=== PATIENT | female | born 1950 | race Caucasian/White ===

== ENCOUNTER → 2019-01-16 12:36 | Outpatient (CLI) | payer MEDICARE, OTHER, SELFPAY ==
[2019-01-16 14:16] LABS: Urine Chlamydia NOT DETECTED; Urine N gonorrhoeae NOT DETECTED
== END ==
PROVIDERS: Visit Provider Physician Assistant
DX: Z20.2 Contact with and (suspected) exposure to infections with a predominantly sexual mode of transmission (principal)
CPT/HCPCS: 87491; 87591

== ENCOUNTER → 2019-01-16 12:41 | Outpatient (CLI) | payer MEDICARE, OTHER, SELFPAY ==
[2019-01-16 14:29] LABS: Hep C Virus Ab w/Reflex Quant NEGATIVE s/c (NEGATIVE)
[2019-01-18 21:04] LABS: RPR Screen Nonreactive (Nonreactive)
[2019-01-21 14:37] LABS: HSV 1 IgM Screen Negative (Negative); HSV 2 IgM Screen Negative (Negative)
[2019-01-22 07:55] LABS: Hepatitis B Core Antibody Reactive (Nonreactive)
== END ==
PROVIDERS: Visit Provider Physician Assistant
DX: R21 Rash and other nonspecific skin eruption (principal)
CPT/HCPCS: 36415; 86592; 86695; 86696; 86704; 86803; 87491; 87591

== ENCOUNTER → 2020-05-31 15:00 | Outpatient (CLI) | payer MEDICARE, OTHER, SELFPAY | PROVIDERS: Visit Provider Specialist | DX: N39.0 Urinary tract infection, site not specified (principal); R31.9 Hematuria, unspecified; R39.9 Unspecified symptoms and signs involving the genitourinary system | CPT/HCPCS: 52000; 81002; 87086; 99213 ==

== ENCOUNTER 2024-02-05 09:00 | Outpatient (RCR) | payer MEDICARE, OTHER, SELFPAY ==
--- NOTE | 2023-12-15 16:23 | PT.OIE ---
Current Diagnoses Muscle weakness (generalized) (12/15/23) Pelvic and perineal pain (12/15/23) Fecal smearing (12/15/23) Past Medical History (Last Updated 06/29/20 @ 14:44 by Christina Sidhu MD) Arthritis Back pain Chronic UTI Hematuria Hematuria HTN (hypertension) Lower urinary tract symptoms (LUTS) Lower urinary tract symptoms (LUTS) Lupus Past Surgical History (Last Reviewed 06/29/20 @ 14:43 by Christina Sidhu MD) H/O thymectomy Visit Care Team Role Provider Type Justo Diamond MD Family Provider Non-Staff Primary Care Provider Specialty: Medical Address: [address] [place] [address], [id number] Email: FRANCHESCA Valdes Attending Provider Non-Staff Referring Provider Specialty: Nursing Address: 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 PT-OP-B Current Condition Start: 12/11/23 17:23 Freq: Status: Active Protocol: Document 12/15/23 10:38 LRN (Rec: 12/15/23 12:20 LRN [id number]) Current Condition History of Current Condition Onset Date 2 yrs ago. Current Complaints PF heaviness and pain. History of Current Condition 2 yrs ago felt heaviness in the PF. Was told she had PF issues and saw a PT and got some relief. Has taken a couple of trips and after sitting for long periods of time has heaviness and increased frequecy/urgency and 3 months ago started to have pain (inside vaginal canal and anus); testing for infections was negative. In the morning she doesn't have pain, but it increases as the day goes on. Went to and was told she had a urine spasm and told she could have a BOTOX injection on 12/26/23. Prior Treatments and Tests PT at [facility] in [place], [place] - 2 yrs ago. Gabapentin for 3 months. Future Testing and Treatments Planned BOTOX injection on 12/26/23 Treatment Goals Patient/Caregiver Goals Pt goal: initially for HEP. - eliminate PF pain to be able to exer 5x/wk (TM, sometimes UE strengthening) - decreased urgency to decrease pain in vagina and anus. - decreased frequency of urination to be able to do a [address] [facility] Personal Factors Other Personal Factors That May Effect Small vaginal opening and dry Therapy/Recovery PF tissues, Occasional flare up of Lupus, Rheumatoid arthritis (mostly in hands), tracheostomy 10 yrs ago. PT-OP-C Subjective Start: 12/11/23 17:23 Freq: Status: Active Protocol: Document 12/15/23 10:38 LRN (Rec: 12/15/23 12:20 LRN [id number]) Patient Questionnaires Pelvic Pain and Urgency/Frequency Patient Symptom Scale Pelvic Pain Score 10 PT-OP-I Pelvic Floor Start: 12/11/23 17:23 Freq: Status: Active Protocol: Document 12/15/23 10:38 LRN (Rec: 12/15/23 12:20 LRN [id number]) Pelvic Floor Assessment Urine Urinary Symptoms Urge Sensation,Hesitancy, Falling Out Feeling/Heavy,Pain Other Urinary Symptoms Sitting for long periods of time causes pain. Sometimes strains to urinate Leakage Size Small Leakage Cause Exercise Other Leakage Causes Vigorous activity or exercise. Leaks Per Day 1x/month Voiding Frequency 4 Nocturia 1-2 Pads Used In 24 Hours 1 Urine Pad Type Panty Liner Bowel Bowel Symptoms Constipation,Fecal Leakage, Uncontrolled Flatulence,Pain Bowel Movement Frequency 1/day if mariusz, 1 every 2 days . [place] Stool Chart Comments 1, 4 7 bowel types Pelvic Clock Pelvic Clock 12-3 Tenderness,Tightness Pelvic Clock 3-6 Tenderness,Tightness Pelvic Clock 6-9 Tenderness,Tightness Pelvic Clock 9-12 Tenderness,Tightness Pelvic Clock Other Greatest pain 6-9 of PF clock. Prolapse Cystocele Grade 2 Rectocele Grade 1 Perineal Descent Resting Absent Bearing Present Contraction Ability Voluntary Contraction Weak Voluntary Relaxation Absent Manual Muscle Testing Left 0 Manual Muscle Testing Right 2 Manual Muscle Testing Anterior 0 Manual Muscle Testing Posterior 2 Muscle Endurance (Seconds) 2 Number of Quick Contractions In 10 6 Seconds Comments Pelvic Floor Comments Poor relaxation Quick: Not felt on L side after 2 contractions, felt on R side 6 contractions. PT-OP-J Posture/Palpation/Skin Start: 12/11/23 17:23 Freq: Status: Active Protocol: Document 12/15/23 10:38 LRN (Rec: 12/15/23 12:20 LRN [id number]) Posture Evaluation Position Standing T-Spine Posture Increased Kyphosis L-Spine Posture Increased Lordosis Shoulder Posture (L) Elevated Arm Posture (L) Internally Rotated,(R) Internally Rotated Pelvis Posture Anteriorly Tilted Comments Posture Comments Tight gluteals (butt gripper). PT-OP-K Range of Motion Start: 12/11/23 17:23 Freq: Status: Active Protocol: Document 12/15/23 10:38 LRN (Rec: 12/15/23 12:20 LRN [id number]) Lumbar Spine Range of Motion Lumbar Spine Active Degrees Testing Position Standing Flexion 98 Extension 15 Rotation Left 30 Rotation Right 30 Lateral Flexion Left 15 Lateral Flexion Right 12 ROM Limitations Soft Tissue Tightness Hip Goniometric Range of Motion Hip Right Passive Testing Position Supine Internal Rotation 35 External Rotation 60 Left Passive Testing Position Supine Internal Rotation 30 External Rotation 60 PT-OP-M Strength Start: 12/11/23 17:23 Freq: Status: Active Protocol: Document 12/15/23 10:38 LRN (Rec: 12/15/23 12:20 LRN [id number]) Trunk Strength Trunk Manual Muscle Testing Core Stabilization Normal Hip Strength Hip Manual Muscle Testing Right Internal Rotation 4+ Good+ Comments Generally 5/5 except as indicated above Left Internal Rotation 4+ Good+ Comments Generally 5/5 except as indicated above PT-OP-Q Treatments Start: 12/11/23 17:23 Freq: Status: Active Protocol: Document 12/15/23 10:38 LRN (Rec: 12/15/23 12:20 LRN [id number]) Therapeutic Exercises Supine Exercises Piriformis stretch Supine Exercise Name Ankle over knee > KTC. Side bilateral Reps/Minutes 1x each Iliopsoas stretch Side bilateral Reps/Minutes 1x each Bowel massage Supine Exercise Name Performed briefly on pt w/ instructions on self care Reps/Minutes x1 Sitting Exercises Hip ER/IR stretch Side bilateral Reps/Minutes 1x each Other Exercises Long sit lower back/hip stretch Other Exercise Name Lower trunk rot/Lateral Hip stretch Side bilateral Reps/Minutes 1x each Self-Care/Home Management Treatment Education Patient Education Home Exercise Program Other Education Discussed results of evaluation, attendance compliance, goals, and plan of care (POC). Pt agreeable to attendance compliance, goals and POC. Pt educated in use of Bladder/ Bowel Diary and I/S in tracking for 1 week. Pt educated in bowel massage & bowel program with I/s to discuss with her refering physician consumption of bran or flaxseed, magnesium, and vit C consumption. Activities Self-Care/Home Management Activities Issued & reviewed HEP: Hip stretches: Happy Baby, Front thigh (psoas stretch), Piriformis (ankle over knee> KTC), lower back & hip stretch , sitting buttock ER/IR stretch. PT-OP-T Assessment and Plan Start: 12/11/23 17:23 Freq: Status: Active Protocol: Document 12/15/23 10:38 LRN (Rec: 12/15/23 12:20 LRN [id number]) Physical Therapy Assessment Rehab Potential Rehabilitation Potential Good Evaluation Complexity Number of Personal Factors/Comorbidities 3 or More Number of Body Systems Impaired 4 or More Clinical Presentation at Evaluation Evolving Impairments Impairments Activity Tolerance, Coordination,Pain,Posture,ROM, Soft Tissue Mobility,Strength, Transfers Goals Three Impairment Increased urinary frequency complaints Short Term Goal (STG) Pt educated in fluid managment norms and urinary voiding and times. STG Duration 4 wks-01/09/24 Assisted Goal (LTG) Decrease frequency of urination with pt able to feel comfortable with traveling a 12 hr flight in Apr. LTG Duration 12 wks-03/05/24 Two Impairment PF pain as day progresses and pain with exercise. Impairment PF pain with exer 5x/wk (TM ex and sometimes UE strengthening) Urinary Urgency with pain in vagina and anus. Short Term Goal (STG) Pt educated in Bowel program, Bowel massage, techniques for having BM without straining. STG Duration 4 wks-01/09/24 Assisted Goal (LTG) Improve bladder & bowel management to eliminate straining with BM's & eliminate PF pain with exer 5x/without or with minimal discomfort. LTG Duration 12 wks-03/05/24 One Impairment Pt lacks an independent self care HEP. Short Term Goal (STG) Education in proper methods for transfers, & ADLs with coordination of breathing and core pressure management, and proper vulvar/genital care STG Duration 4 wks-01/09/24 Assisted Goal (LTG) Pt will be independent with a self care HEP of PF stretching and as needed, strengthening exercises, and hip ROM exercises. LTG Duration 12 wks-03/05/24 Assessment Summary Assessment Pt is a 73 yo female who presents with PF tightness, pain (6-9 of PF clock, & discomfort 2-6 and 9-11 of PF clock, dry vaginal tissues, mild cystocele/rectocele, substitute muscles used for PF contractions, poor core pressure management with movement/transfers and body mechanics exacerbating increase in core pressure, and constipation, all contributing to her pelvic pain. It feels like a varicosity may be present at 6 of PF clock that is extremely sensitive and tender, therefore further assessment may be needed. Her external vaginal tissues are dry and she has a small vaginal opening with tenderness of her superficial and deep PF muscles. Assessment of her anal muscles will be performed at her next appt. The pt has been started on a bowel care program to include bowel massage, and self care hip stretches. The pt will benefit from further skilled physical therapy for education in PF relaxation, core pressure management, manual STM, therapeutic ex's, transfer and posture training, to work to achieve the above stated goals. Physical Therapy Plan Frequency and Duration Frequency of Treatment 1x/Week Duration of treatment (weeks) 12 Plan of Care Start Date 12/15/23 Plan of Care End Date 01/09/24 Therapeutic Interventions Therapeutic Interventions Coordination Training,Gait Training,Home Exercise Program ,Manual Therapy,Neuromuscular Re-education,Self-Care/Home Management,Soft Tissue Mobilization,Therapeutic Activities,Therapeutic Exercises Modalities Biofeedback,Electric Stimulation Other Referrals/Consults Referrals/Consults Recommended Assessment for need of estrogen creme to improve PF tissue health. Next Visit Focus/Plan Next Note Type Treatment Note Next Visit Plan POC for Pelvic pain/cytocele & rectocele: Core pressure & transfer training education, Deep breathing & Hip mobility exs, PF stretching/STM, HEP. Assess bladder diary and bowel involvement with recommendations as appropriate . HEP: PF stretching (with ex and wand), awareness training to relax PF, and relaxation techniques, Hip stretch (R ER, L IR/AB) & core strengthening (rotation, TA). Education in proper methods for transfer with coordination of breathing. Manual therapy for PF stretching (PF clock 6 -8).
--- NOTE | 2023-12-15 16:24 | PT.OPPOC ---
Physical, Occupational & Speech Therapy At [facility] Current Diagnoses Muscle weakness (generalized) (12/15/23) Pelvic and perineal pain (12/15/23) Fecal smearing (12/15/23) Visit Care Team Role Provider Type Justo Diamond MD Family Provider Non-Staff Primary Care Provider Specialty: Medical Address: [address] [place] [address], [address] Email: FRANCHESCA Valdes Attending Provider Non-Staff Referring Provider Specialty: Nursing Address: [facility], [address], [place], [address] Email: Plan Of Care PT-OP-T Assessment and Plan Start: 12/11/23 17:23 Freq: Status: Active Protocol: Document 12/15/23 10:38 LRN (Rec: 12/15/23 12:20 LRN [id number]) Physical Therapy Assessment Rehab Potential Rehabilitation Potential Good Evaluation Complexity Number of Personal Factors/Comorbidities 3 or More Number of Body Systems Impaired 4 or More Clinical Presentation at Evaluation Evolving Impairments Impairments Activity Tolerance, Coordination,Pain,Posture,ROM, Soft Tissue Mobility,Strength, Transfers Goals Three Impairment Increased urinary frequency complaints Short Term Goal (STG) Pt educated in fluid managment norms and urinary voiding and times. STG Duration 4 wks-01/09/24 Nursing Home Goal (LTG) Decrease frequency of urination with pt able to feel comfortable with traveling a 12 hr flight in Apr. LTG Duration 12 wks-03/05/24 Two Impairment PF pain as day progresses and pain with exercise. Impairment PF pain with exer 5x/wk (TM ex and sometimes UE strengthening) Urinary Urgency with pain in vagina and anus. Short Term Goal (STG) Pt educated in Bowel program, Bowel massage, techniques for having BM without straining. STG Duration 4 wks-01/09/24 Die Grinder Goal (LTG) Improve bladder & bowel management to eliminate straining with BM's & eliminate PF pain with exer 5x/without or with minimal discomfort. LTG Duration 12 wks-03/05/24 One Impairment Pt lacks an independent self care HEP. Short Term Goal (STG) Education in proper methods for transfers, & ADLs with coordination of breathing and core pressure management, and proper vulvar/genital care STG Duration 4 wks-01/09/24 Nursing Home Goal (LTG) Pt will be independent with a self care HEP of PF stretching and as needed, strengthening exercises, and hip ROM exercises. LTG Duration 12 wks-03/05/24 Assessment Summary Assessment Pt is a 73 yo female who presents with PF tightness, pain (6-9 of PF clock, & discomfort 2-6 and 9-11 of PF clock, dry vaginal tissues, mild cystocele/rectocele, substitute muscles used for PF contractions, poor core pressure management with movement/transfers and body mechanics exacerbating increase in core pressure, and constipation, all contributing to her pelvic pain. It feels like a varicosity may be present at 6 of PF clock that is extremely sensitive and tender, therefore further assessment may be needed. Her external vaginal tissues are dry and she has a small vaginal opening with tenderness of her superficial and deep PF muscles. Assessment of her anal muscles will be performed at her next appt. The pt has been started on a bowel care program to include bowel massage, and self care hip stretches. The pt will benefit from further skilled physical therapy for education in PF relaxation, core pressure management, manual STM, therapeutic ex's, transfer and posture training, to work to achieve the above stated goals. Physical Therapy Plan Frequency and Duration Frequency of Treatment 1x/Week Duration of treatment (weeks) 12 Plan of Care Start Date 12/15/23 Plan of Care End Date 01/09/24 Therapeutic Interventions Therapeutic Interventions Coordination Training,Gait Training,Home Exercise Program ,Manual Therapy,Neuromuscular Re-education,Self-Care/Home Management,Soft Tissue Mobilization,Therapeutic Activities,Therapeutic Exercises Modalities Biofeedback,Electric Stimulation Other Referrals/Consults Referrals/Consults Recommended Assessment for need of estrogen creme to improve PF tissue health. Next Visit Focus/Plan Next Note Type Treatment Note Next Visit Plan POC for Pelvic pain/cytocele & rectocele: Core pressure & transfer training education, Deep breathing & Hip mobility exs, PF stretching/STM, HEP. Assess bladder diary and bowel involvement with recommendations as appropriate . HEP: PF stretching (with ex and wand), awareness training to relax PF, and relaxation techniques, Hip stretch (R ER, L IR/AB) & core strengthening (rotation, TA). Education in proper methods for transfer with coordination of breathing. Manual therapy for PF stretching (PF clock 6 -8). Plan of Care Dates Plan of Care Start Date 12/15/23 Plan of Care End Date 01/09/24 Electronically Signed by: Caroline Motta, PT 12/15/23 [id number] If you are in agreement with this Plan of Care, please return a signed and dated copy. I have reviewed this Plan of Care and certify that the skilled therapy services above are required to meet the patient?s needs. Physician Signature Date Printed Name and Credentials Clinical Instructor Signature Printed Name and Credentials
--- NOTE | 2023-12-22 11:48 | PT.OTN ---
Current Diagnoses Muscle weakness (generalized) (12/22/23) Pelvic and perineal pain (12/22/23) Fecal smearing (12/22/23) Physical Therapy Treatment Note PT-OP-A Visit Information Start: 12/11/23 17:23 Freq: Status: Active Protocol: Document 12/22/23 10:32 LRN (Rec: 12/22/23 11:48 LRN [id number]) Out-Patient Physical Therapy Visit Information Visit Information Visit Type Treatment Note Visit Note t 146# 12/26/23-BOTOX injection in cervix @ 01/04/24-appt with Dr. Quique Peraza , configuration management specialist. 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 PT-OP-B Current Condition Start: 12/11/23 17:23 Freq: Status: Active Protocol: Document 12/15/23 10:38 LRN (Rec: 12/15/23 12:20 LRN [id number]) Current Condition History of Current Condition Onset Date 2 yrs ago. Current Complaints PF heaviness and pain. History of Current Condition 2 yrs ago felt heaviness in the PF. Was told she had PF issues and saw a PT and got some relief. Has taken a couple of trips and after sitting for long periods of time has heaviness and increased frequecy/urgency and 3 months ago started to have pain (inside vaginal canal and anus); testing for infections was negative. In the morning she doesn't have pain, but it increases as the day goes on. Went to and was told she had a urine spasm and told she could have a BOTOX injection on 12/26/23. Prior Treatments and Tests [facility] [place], [place] - 2 yrs ago. Gabapentin for 3 months. Future Testing and Treatments Planned BOTOX injection on 12/26/23 Treatment Goals Patient/Caregiver Goals Pt goal: initially for HEP. - eliminate PF pain to be able to exer 5x/wk (TM, sometimes UE strengthening) - decreased urgency to decrease pain in vagina and anus. - decreased frequency of urination to be able to do a 12 hr flight in Sept Personal Factors Other Personal Factors That May Effect Small vaginal opening and dry Therapy/Recovery PF tissues, Occasional flare up of Lupus, Rheumatoid arthritis (mostly in hands), tracheostomy 10 yrs ago. PT-OP-C Subjective Start: 12/11/23 17:23 Freq: Status: Active Protocol: Document 12/22/23 10:32 LRN (Rec: 12/22/23 11:48 LRN [id number]) OP-PT Subjective Patient Comments Patient Comments States her per colonoscopy of 12/19/23 at [facility], she was told her colon was all twisted and she has a hiatal hernia. Doing ex's 1-2x/day and the ILU massage. States she drinks 8-10 glasses of water a day that is not reflected in her bladder diary . PT-OP-I Pelvic Floor Start: 12/11/23 17:23 Freq: Status: Active Protocol: Document 12/15/23 10:38 LRN (Rec: 12/15/23 12:20 LRN [id number]) Pelvic Floor Assessment Urine Urinary Symptoms Urge Sensation,Hesitancy, Falling Out Feeling/Heavy,Pain Other Urinary Symptoms Sitting for long periods of time causes pain. Sometimes strains to urinate Leakage Size Small Leakage Cause Exercise Other Leakage Causes Vigorous activity or exercise. Leaks Per Day 1x/month Voiding Frequency 4 Nocturia 1-2 Pads Used In 24 Hours 1 Urine Pad Type Panty Liner Bowel Bowel Symptoms Constipation,Fecal Leakage, Uncontrolled Flatulence,Pain Bowel Movement Frequency 1/day if mariusz, 1 every 2 days . [place] Stool Chart Comments 1, 4 7 bowel types Pelvic Clock Pelvic Clock 12-3 Tenderness,Tightness Pelvic Clock 3-6 Tenderness,Tightness Pelvic Clock 6-9 Tenderness,Tightness Pelvic Clock 9-12 Tenderness,Tightness Pelvic Clock Other Greatest pain 6-9 of PF clock. Prolapse Cystocele Grade 2 Rectocele Grade 1 Perineal Descent Resting Absent Bearing Present Contraction Ability Voluntary Contraction Weak Voluntary Relaxation Absent Manual Muscle Testing Left 0 Manual Muscle Testing Right 2 Manual Muscle Testing Anterior 0 Manual Muscle Testing Posterior 2 Muscle Endurance (Seconds) 2 Number of Quick Contractions In 10 6 Seconds Comments Pelvic Floor Comments Poor relaxation Quick: Not felt on L side after 2 contractions, felt on R side 6 contractions. PT-OP-J Posture/Palpation/Skin Start: 12/11/23 17:23 Freq: Status: Active Protocol: Document 12/15/23 10:38 LRN (Rec: 12/15/23 12:20 LRN [id number]) Posture Evaluation Position Standing T-Spine Posture Increased Kyphosis L-Spine Posture Increased Lordosis Shoulder Posture (L) Elevated Arm Posture (L) Internally Rotated,(R) Internally Rotated Pelvis Posture Anteriorly Tilted Comments Posture Comments Tight gluteals (butt gripper). PT-OP-K Range of Motion Start: 12/11/23 17:23 Freq: Status: Active Protocol: Document 12/15/23 10:38 LRN (Rec: 12/15/23 12:20 LRN [id number]) Lumbar Spine Range of Motion Lumbar Spine Active Degrees Testing Position Standing Flexion 98 Extension 15 Rotation Left 30 Rotation Right 30 Lateral Flexion Left 15 Lateral Flexion Right 12 ROM Limitations Soft Tissue Tightness Hip Goniometric Range of Motion Hip Right Passive Testing Position Supine Internal Rotation 35 External Rotation 60 Left Passive Testing Position Supine Internal Rotation 30 External Rotation 60 PT-OP-M Strength Start: 12/11/23 17:23 Freq: Status: Active Protocol: Document 12/15/23 10:38 LRN (Rec: 12/15/23 12:20 LRN [id number]) Trunk Strength Trunk Manual Muscle Testing Core Stabilization Normal Hip Strength Hip Manual Muscle Testing Right Internal Rotation 4+ Good+ Comments Generally 5/5 except as indicated above Left Internal Rotation 4+ Good+ Comments Generally 5/5 except as indicated above PT-OP-Q Treatments Start: 12/11/23 17:23 Freq: Status: Active Protocol: Document 12/22/23 10:32 LRN (Rec: 12/22/23 11:48 LRN [id number]) Therapeutic Exercises Supine Exercises Happy Baby Pose Supine Exercise Name Happy Baby Pose Reps/Minutes 3' Comments Extra time needed for determining a tolerated stretch position Piriformis stretch Supine Exercise Name Ankle over knee > KTC. Side bilateral Reps/Minutes 1x each Iliopsoas stretch Supine Exercise Name Stretch f/b SL bridge for active stretch Side bilateral Reps/Minutes 1x each Comments Extra time for training and addition of active stretch after static stretch Bowel massage Supine Exercise Name Performed briefly on pt w/ instructions on self care Reps/Minutes x1 Sitting Exercises Hip ER/IR stretch Sitting Exercise Name Knee to opp shdr & light push down on knee. Side bilateral Reps/Minutes 1x each Comments Extra time taken to determine max keo stretch position Other Exercises Long sit lower back/hip stretch Other Exercise Name Lower trunk rot/Lateral Hip stretch Side bilateral Reps/Minutes 1x each Comments Extra time for use of handout for review Therapeutic Activity Therapeutic Activity Modification to fluid mgmt Name Modifying fluid mgmt during ADLs and recreational activities. Reps/Minutes 6' Comments I/S pt in trying to add fluid in AM with modification of her gardening times to include water bottle or pitcher for drinking more fluids. Ideas of placing fluid in front of her to see to sip through the day. Problem solved for ways to incorporate non-caffenated fluids into her diet and daily activities. Self-Care/Home Management Treatment Education Patient Education Home Exercise Program Other Education Reviewed Bladder dairy, discussed fluid intake (AM/PM) & educated her in norms of fluid managment, frequency of urination, urinary voiding times, & nighttime voiding frequency. Pt education and lengthy discussion of bowel movement frequency, how to have bowel movements using relaxation and breathwork (without holding breath), and discussed squatty potty use. Discussion in PF muscles and internal organ positioning Activities Self-Care/Home Management Activities Issued with very brief review of Deep breathing (supine & sit) handout. PT-OP-T Assessment and Plan Start: 12/11/23 17:23 Freq: Status: Active Protocol: Document 12/22/23 10:32 LRN (Rec: 12/22/23 11:48 LRN [id number]) Physical Therapy Assessment Goals Three Impairment Increased urinary frequency complaints Short Term Goal (STG) Pt educated in fluid managment norms and urinary voiding and times. STG Duration 4 wks-01/09/24 Penitentiary Goal (LTG) Decrease frequency of urination with pt able to feel comfortable with traveling a 12 hr flight in Apr. LTG Duration 12 wks-03/05/24 Two Impairment PF pain as day progresses and pain with exercise. Impairment PF pain with exer 5x/wk (TM ex and sometimes UE strengthening) Urinary Urgency with pain in vagina and anus. Short Term Goal (STG) Pt educated in Bowel program, Bowel massage, techniques for having BM without straining. STG Duration 4 wks-01/09/24 Penitentiary Goal (LTG) Improve bladder & bowel management to eliminate straining with BM's & eliminate PF pain with exer 5x/without or with minimal discomfort. LTG Duration 12 wks-03/05/24 One Impairment Pt lacks an independent self care HEP. Short Term Goal (STG) Education in proper methods for transfers, & ADLs with coordination of breathing and core pressure management, and proper vulvar/genital care STG Duration 4 wks-01/09/24 Penitentiary Goal (LTG) Pt will be independent with a self care HEP of PF stretching and as needed, strengthening exercises, and hip ROM exercises. 12/22/23: HEP: Deep breathing ex. LTG Duration 12 wks-03/05/24 progressed 12/22/23 Assessment Summary Assessment ........ 73 yo fem w/PF tightness, pain (6-9 of PF clock, & discomfort 2-6 and 9- 11 of PF clock), dry vaginal tissues w/small opening and tenderness of superficial & deep PF muscles, mild cystocele/rectocele, substitute muscles used for PF contractions, poor core pressure management with movement/transfers and body mechanics exacerbating increase in core pressure, and constipation, all contributing to her pelvic pain; possible varicosity to be watched may be present at 6 of PF clock that is extremely sensitive and tender. Today pt reports colonoscopy shows twisted colon. She shows fairly good recall of her HEP, needed review of stretches ( happy baby & sit ER/IR). Bladder diary indicates poor fluid intake, although she feels she drinks enough, but with discussion she appears inaccurate (estimate of 12 glasses (8 oz)/day). Pt may need further assessment of fluid intake. Pt is very receptive to information given and notes feeling less pelvic pressure after bowel movements. Physical Therapy Plan Frequency and Duration Frequency of Treatment 1x/Week Duration of treatment (weeks) 12 Plan of Care Start Date 12/15/23 Plan of Care End Date 01/09/24 Next Visit Focus/Plan Next Note Type Treatment Note Next Visit Plan Next: Review her Health hx questioinaire. Review deep breathing. Education and discussion in bladder & bowel diet, ?Urinary urge technique with handout issued. PF relaxation ex (reverse Kegel) Ex & Education in core pressure mgmt & transfers w/ coordination of breathing, and education in proper vulvar and perineal care with handout issued. POC for Pelvic pain/cytocele & rectocele: Assess bowel involvement with recommendations as appropriate . Core pressure & transfer training education, Hip mobility exs, PF stretching/ STM, HEP. HEP: PF stretching (with ex and wand), awareness training to relax PF, and relaxation techniques, Hip stretch (R ER, L IR/AB) & core strengthening (rotation, TA). Manual therapy for PF stretching (PF clock 6-8).
--- NOTE | 2023-12-22 11:50 | PT.OTN ---
Current Diagnoses Muscle weakness (generalized) (12/22/23) Pelvic and perineal pain (12/22/23) Fecal smearing (12/22/23) Physical Therapy Treatment Note PT-OP-A Visit Information Start: 12/11/23 17:23 Freq: Status: Active Protocol: Document 12/22/23 10:32 LRN (Rec: 12/22/23 11:48 LRN [id number]) Out-Patient Physical Therapy Visit Information Visit Information Visit Type Treatment Note Visit Note t 146# 12/26/23-BOTOX injection in cervix @ 01/04/24-appt with Dr. Quique Peraza , self contained behavior unit teacher. 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 PT-OP-B Current Condition Start: 12/11/23 17:23 Freq: Status: Active Protocol: Document 12/15/23 10:38 LRN (Rec: 12/15/23 12:20 LRN [id number]) Current Condition History of Current Condition Onset Date 2 yrs ago. Current Complaints PF heaviness and pain. History of Current Condition 2 yrs ago felt heaviness in the PF. Was told she had PF issues and saw a PT and got some relief. Has taken a couple of trips and after sitting for long periods of time has heaviness and increased frequecy/urgency and 3 months ago started to have pain (inside vaginal canal and anus); testing for infections was negative. In the morning she doesn't have pain, but it increases as the day goes on. Went to and was told she had a urine spasm and told she could have a BOTOX injection on 12/26/23. Prior Treatments and Tests PT at [facility] in [place], [place] - 2 yrs ago. Gabapentin for 3 months. Future Testing and Treatments Planned BOTOX injection on 12/26/23 Treatment Goals Patient/Caregiver Goals Pt goal: initially for HEP. - eliminate PF pain to be able to exer 5x/wk (TM, sometimes UE strengthening) - decreased urgency to decrease pain in vagina and anus. - decreased frequency of urination to be able to do a 12 hr flight in Sept Personal Factors Other Personal Factors That May Effect Small vaginal opening and dry Therapy/Recovery PF tissues, Occasional flare up of Lupus, Rheumatoid arthritis (mostly in hands), tracheostomy 10 yrs ago. PT-OP-C Subjective Start: 12/11/23 17:23 Freq: Status: Active Protocol: Document 12/22/23 10:32 LRN (Rec: 12/22/23 11:48 LRN [id number]) OP-PT Subjective Patient Comments Patient Comments States her per colonoscopy of 12/19/23 at [facility], she was told her colon was all twisted and she has a hiatal hernia. Doing ex's 1-2x/day and the ILU massage. States she drinks 8-10 glasses of water a day that is not reflected in her bladder diary . PT-OP-I Pelvic Floor Start: 12/11/23 17:23 Freq: Status: Active Protocol: Document 12/15/23 10:38 LRN (Rec: 12/15/23 12:20 LRN [id number]) Pelvic Floor Assessment Urine Urinary Symptoms Urge Sensation,Hesitancy, Falling Out Feeling/Heavy,Pain Other Urinary Symptoms Sitting for long periods of time causes pain. Sometimes strains to urinate Leakage Size Small Leakage Cause Exercise Other Leakage Causes Vigorous activity or exercise. Leaks Per Day 1x/month Voiding Frequency 4 Nocturia 1-2 Pads Used In 24 Hours 1 Urine Pad Type Panty Liner Bowel Bowel Symptoms Constipation,Fecal Leakage, Uncontrolled Flatulence,Pain Bowel Movement Frequency 1/day if mariusz, 1 every 2 days . [place] Stool Chart Comments 1, 4 7 bowel types Pelvic Clock Pelvic Clock 12-3 Tenderness,Tightness Pelvic Clock 3-6 Tenderness,Tightness Pelvic Clock 6-9 Tenderness,Tightness Pelvic Clock 9-12 Tenderness,Tightness Pelvic Clock Other Greatest pain 6-9 of PF clock. Prolapse Cystocele Grade 2 Rectocele Grade 1 Perineal Descent Resting Absent Bearing Present Contraction Ability Voluntary Contraction Weak Voluntary Relaxation Absent Manual Muscle Testing Left 0 Manual Muscle Testing Right 2 Manual Muscle Testing Anterior 0 Manual Muscle Testing Posterior 2 Muscle Endurance (Seconds) 2 Number of Quick Contractions In 10 6 Seconds Comments Pelvic Floor Comments Poor relaxation Quick: Not felt on L side after 2 contractions, felt on R side 6 contractions. PT-OP-J Posture/Palpation/Skin Start: 12/11/23 17:23 Freq: Status: Active Protocol: Document 12/15/23 10:38 LRN (Rec: 12/15/23 12:20 LRN [id number]) Posture Evaluation Position Standing T-Spine Posture Increased Kyphosis L-Spine Posture Increased Lordosis Shoulder Posture (L) Elevated Arm Posture (L) Internally Rotated,(R) Internally Rotated Pelvis Posture Anteriorly Tilted Comments Posture Comments Tight gluteals (butt gripper). PT-OP-K Range of Motion Start: 12/11/23 17:23 Freq: Status: Active Protocol: Document 12/15/23 10:38 LRN (Rec: 12/15/23 12:20 LRN [id number]) Lumbar Spine Range of Motion Lumbar Spine Active Degrees Testing Position Standing Flexion 98 Extension 15 Rotation Left 30 Rotation Right 30 Lateral Flexion Left 15 Lateral Flexion Right 12 ROM Limitations Soft Tissue Tightness Hip Goniometric Range of Motion Hip Right Passive Testing Position Supine Internal Rotation 35 External Rotation 60 Left Passive Testing Position Supine Internal Rotation 30 External Rotation 60 PT-OP-M Strength Start: 12/11/23 17:23 Freq: Status: Active Protocol: Document 12/15/23 10:38 LRN (Rec: 12/15/23 12:20 LRN [id number]) Trunk Strength Trunk Manual Muscle Testing Core Stabilization Normal Hip Strength Hip Manual Muscle Testing Right Internal Rotation 4+ Good+ Comments Generally 5/5 except as indicated above Left Internal Rotation 4+ Good+ Comments Generally 5/5 except as indicated above PT-OP-Q Treatments Start: 12/11/23 17:23 Freq: Status: Active Protocol: Document 12/22/23 10:32 LRN (Rec: 12/22/23 11:48 LRN [id number]) Therapeutic Exercises Supine Exercises Happy Baby Pose Supine Exercise Name Happy Baby Pose Reps/Minutes 3' Comments Extra time needed for determining a tolerated stretch position Piriformis stretch Supine Exercise Name Ankle over knee > KTC. Side bilateral Reps/Minutes 1x each Iliopsoas stretch Supine Exercise Name Stretch f/b SL bridge for active stretch Side bilateral Reps/Minutes 1x each Comments Extra time for training and addition of active stretch after static stretch Bowel massage Supine Exercise Name Performed briefly on pt w/ instructions on self care Reps/Minutes x1 Sitting Exercises Hip ER/IR stretch Sitting Exercise Name Knee to opp shdr & light push down on knee. Side bilateral Reps/Minutes 1x each Comments Extra time taken to determine max keo stretch position Other Exercises Long sit lower back/hip stretch Other Exercise Name Lower trunk rot/Lateral Hip stretch Side bilateral Reps/Minutes 1x each Comments Extra time for use of handout for review Therapeutic Activity Therapeutic Activity Modification to fluid mgmt Name Modifying fluid mgmt during ADLs and recreational activities. Reps/Minutes 6' Comments I/S pt in trying to add fluid in AM with modification of her gardening times to include water bottle or pitcher for drinking more fluids. Ideas of placing fluid in front of her to see to sip through the day. Problem solved for ways to incorporate non-caffenated fluids into her diet and daily activities. Self-Care/Home Management Treatment Education Patient Education Home Exercise Program Other Education Reviewed Bladder dairy, discussed fluid intake (AM/PM) & educated her in norms of fluid managment, frequency of urination, urinary voiding times, & nighttime voiding frequency. Pt education and lengthy discussion of bowel movement frequency, how to have bowel movements using relaxation and breathwork (without holding breath), and discussed squatty potty use. Discussion in PF muscles and internal organ positioning Activities Self-Care/Home Management Activities Issued with very brief review of Deep breathing (supine & sit) handout. PT-OP-T Assessment and Plan Start: 12/11/23 17:23 Freq: Status: Active Protocol: Document 12/22/23 10:32 LRN (Rec: 12/22/23 11:48 LRN [id number]) Physical Therapy Assessment Goals Three Impairment Increased urinary frequency complaints Short Term Goal (STG) Pt educated in fluid managment norms and urinary voiding and times. STG Duration 4 wks-01/09/24 [facility] Goal (LTG) Decrease frequency of urination with pt able to feel comfortable with traveling a 12 hr flight in Apr. LTG Duration 12 wks-03/05/24 Two Impairment PF pain as day progresses and pain with exercise. Impairment PF pain with exer 5x/wk (TM ex and sometimes UE strengthening) Urinary Urgency with pain in vagina and anus. Short Term Goal (STG) Pt educated in Bowel program, Bowel massage, techniques for having BM without straining. STG Duration 4 wks-01/09/24 [facility] Goal (LTG) Improve bladder & bowel management to eliminate straining with BM's & eliminate PF pain with exer 5x/without or with minimal discomfort. LTG Duration 12 wks-03/05/24 One Impairment Pt lacks an independent self care HEP. Short Term Goal (STG) Education in proper methods for transfers, & ADLs with coordination of breathing and core pressure management, and proper vulvar/genital care STG Duration 4 wks-01/09/24 [facility] Goal (LTG) Pt will be independent with a self care HEP of PF stretching and as needed, strengthening exercises, and hip ROM exercises. 12/22/23: HEP: Deep breathing ex. LTG Duration 12 wks-03/05/24 progressed 12/22/23 Assessment Summary Assessment 73 yo fem w/PF tightness, pain (6-9 of PF clock, & discomfort 2-6 and 9-11 of PF clock), dry vaginal tissues w/ small opening and tenderness of superficial & deep PF muscles, mild cystocele/ rectocele, substitute muscles used for PF contractions, poor core pressure management with movement/transfers and body mechanics exacerbating increase in core pressure, and constipation, all contributing to her pelvic pain; possible varicosity to be watched may be present at 6 of PF clock that is extremely sensitive and tender. Today pt reports colonoscopy shows twisted colon. She shows fairly good recall of her HEP, needed review of stretches ( happy baby & sit ER/IR). Bladder diary indicates poor fluid intake, although she feels she drinks enough, but with discussion she appears inaccurate (estimate of 12 glasses (8 oz)/day). Pt may need further assessment of fluid intake. Pt is very receptive to information given and notes feeling less pelvic pressure after bowel movements. Physical Therapy Plan Frequency and Duration Frequency of Treatment 1x/Week Duration of treatment (weeks) 12 Plan of Care Start Date 12/15/23 Plan of Care End Date 01/09/24 Next Visit Focus/Plan Next Note Type Treatment Note Next Visit Plan Next: Review her Health hx questioinaire. Review deep breathing. Education and discussion in bladder & bowel diet, ?Urinary urge technique with handout issued. PF relaxation ex (reverse Kegel) Ex & Education in core pressure mgmt & transfers w/ coordination of breathing, and education in proper vulvar and perineal care with handout issued. POC for Pelvic pain/cytocele & rectocele: Assess bowel involvement with recommendations as appropriate . Core pressure & transfer training education, Hip mobility exs, PF stretching/ STM, HEP. HEP: PF stretching (with ex and wand), awareness training to relax PF, and relaxation techniques, Hip stretch (R ER, L IR/AB) & core strengthening (rotation, TA). Manual therapy for PF stretching (PF clock 6-8).
--- NOTE | 2023-12-29 17:15 | PT.OTN ---
Current Diagnoses Muscle weakness (generalized) (12/29/23) Pelvic and perineal pain (12/29/23) Fecal smearing (12/29/23) Physical Therapy Treatment Note PT-OP-A Visit Information Start: 12/11/23 17:23 Freq: Status: Active Protocol: Document 12/29/23 10:41 LRN (Rec: 12/29/23 11:23 LRN [id number]) Out-Patient Physical Therapy Visit Information Visit Information Visit Type Treatment Note Visit Note wgt 146# 12/19/23-appt with Dr. 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 PT-OP-B Current Condition Start: 12/11/23 17:23 Freq: Status: Active Protocol: Document 12/15/23 10:38 LRN (Rec: 12/15/23 12:20 LRN [id number]) Current Condition History of Current Condition Onset Date 2 yrs ago. Current Complaints PF heaviness and pain. History of Current Condition 2 yrs ago felt heaviness in the PF. Was told she had PF issues and saw a PT and got some relief. Has taken a couple of trips and after sitting for long periods of time has heaviness and increased frequecy/urgency and 3 months ago started to have pain (inside vaginal canal and anus); testing for infections was negative. In the morning she doesn't have pain, but it increases as the day goes on. Went to and was told she had a urine spasm and told she could have a BOTOX injection on 12/26/23. Prior Treatments and Tests [facility] [place], [place] - 2 yrs [facility]. Gabapentin for 3 months. Future Testing and Treatments Planned BOTOX injection on 12/26/23 Treatment Goals Patient/Caregiver Goals Pt goal: initially for HEP. - eliminate PF pain to be able to exer 5x/wk (TM, sometimes UE strengthening) - decreased urgency to decrease pain in vagina and anus. - decreased frequency of urination to be able to do a 12 hr flight in [facility] Personal Factors Other Personal Factors That May Effect Small vaginal opening and dry Therapy/Recovery PF tissues, Occasional flare up of Lupus, Rheumatoid arthritis (mostly in hands), tracheostomy 10 yrs ago. PT-OP-C Subjective Start: 12/11/23 17:23 Freq: Status: Active Protocol: Document 12/29/23 10:41 LRN (Rec: 12/29/23 11:23 LRN [id number]) OP-PT Subjective Patient Comments Patient Comments 3 days s/p PF Botex injection (R puborectalis for pain R>L), painful. Colonoscopy and Endoscopy (12/19/23). Since botox injection has had less pain and no change in having BM's. Has a pattern of BM's every other day. Less pain in anus and doesn't feel as much pressure. Doesn't have radiating pain private areas and pressure in anus. PT-OP-I Pelvic Floor Start: 12/11/23 17:23 Freq: Status: Active Protocol: Document 12/15/23 10:38 LRN (Rec: 12/15/23 12:20 LRN [id number]) Pelvic Floor Assessment Urine Urinary Symptoms Urge Sensation,Hesitancy, Falling Out Feeling/Heavy,Pain Other Urinary Symptoms Sitting for long periods of time causes pain. Sometimes strains to urinate Leakage Size Small Leakage Cause Exercise Other Leakage Causes Vigorous activity or exercise. Leaks Per Day 1x/month Voiding Frequency 4 Nocturia 1-2 Pads Used In 24 Hours 1 Urine Pad Type Panty Liner Bowel Bowel Symptoms Constipation,Fecal Leakage, Uncontrolled Flatulence,Pain Bowel Movement Frequency 1/day if mariusz, 1 every 2 days . [place] Stool Chart Comments 1, 4 7 bowel types Pelvic Clock Pelvic Clock 12-3 Tenderness,Tightness Pelvic Clock 3-6 Tenderness,Tightness Pelvic Clock 6-9 Tenderness,Tightness Pelvic Clock 9-12 Tenderness,Tightness Pelvic Clock Other Greatest pain 6-9 of PF clock. Prolapse Cystocele Grade 2 Rectocele Grade 1 Perineal Descent Resting Absent Bearing Present Contraction Ability Voluntary Contraction Weak Voluntary Relaxation Absent Manual Muscle Testing Left 0 Manual Muscle Testing Right 2 Manual Muscle Testing Anterior 0 Manual Muscle Testing Posterior 2 Muscle Endurance (Seconds) 2 Number of Quick Contractions In 10 6 Seconds Comments Pelvic Floor Comments Poor relaxation Quick: Not felt on L side after 2 contractions, felt on R side 6 contractions. PT-OP-J Posture/Palpation/Skin Start: 12/11/23 17:23 Freq: Status: Active Protocol: Document 12/15/23 10:38 LRN (Rec: 12/15/23 12:20 LRN [id number]) Posture Evaluation Position Standing T-Spine Posture Increased Kyphosis L-Spine Posture Increased Lordosis Shoulder Posture (L) Elevated Arm Posture (L) Internally Rotated,(R) Internally Rotated Pelvis Posture Anteriorly Tilted Comments Posture Comments Tight gluteals (butt gripper). PT-OP-K Range of Motion Start: 12/11/23 17:23 Freq: Status: Active Protocol: Document 12/15/23 10:38 LRN (Rec: 12/15/23 12:20 LRN [id number]) Lumbar Spine Range of Motion Lumbar Spine Active Degrees Testing Position Standing Flexion 98 Extension 15 Rotation Left 30 Rotation Right 30 Lateral Flexion Left 15 Lateral Flexion Right 12 ROM Limitations Soft Tissue Tightness Hip Goniometric Range of Motion Hip Right Passive Testing Position Supine Internal Rotation 35 External Rotation 60 Left Passive Testing Position Supine Internal Rotation 30 External Rotation 60 PT-OP-M Strength Start: 12/11/23 17:23 Freq: Status: Active Protocol: Document 12/15/23 10:38 LRN (Rec: 12/15/23 12:20 LRN [id number]) Trunk Strength Trunk Manual Muscle Testing Core Stabilization Normal Hip Strength Hip Manual Muscle Testing Right Internal Rotation 4+ Good+ Comments Generally 5/5 except as indicated above Left Internal Rotation 4+ Good+ Comments Generally 5/5 except as indicated above PT-OP-Q Treatments Start: 12/11/23 17:23 Freq: Status: Active Protocol: Document 12/29/23 10:41 LRN (Rec: 12/29/23 11:23 LRN [id number]) Therapeutic Exercises Supine Exercises Deep Breathing Supine Exercise Name Review Reps/Minutes 2' Happy Baby Pose Supine Exercise Name Happy Baby Pose Reps/Minutes 2' Comments Extra time to help pt modify stretch based on pressure vs pain since Botox Manual Therapy Treatment Soft Tissue Mobilization OI Body Location L OI Mobilization Type Sustained Pressure,Trigger Point Release Intensity/Depth Moderate Body Position Hooklying Comments + response PF Body Location L posterior PF (Puborectalis) Mobilization Type Strumming,Sustained Pressure Intensity/Depth Superficial Body Position Hooklying & prone Comments Did not get a release of PF tension. R side was flaccid (from Botox ), L side had tension. PT-OP-T Assessment and Plan Start: 12/11/23 17:23 Freq: Status: Active Protocol: Document 12/29/23 10:41 LRN (Rec: 12/29/23 11:23 LRN [id number]) Physical Therapy Assessment Goals Three Impairment Increased urinary frequency complaints Short Term Goal (STG) Pt educated in fluid managment norms and urinary voiding and times. STG Duration 4 wks-01/09/24 Analytical Engineer Goal (LTG) Decrease frequency of urination with pt able to feel comfortable with traveling a 12 hr flight in Apr. LTG Duration 12 wks-03/05/24 Two Impairment PF pain as day progresses and pain with exercise. Impairment PF pain with exer 5x/wk (TM ex and sometimes UE strengthening) Urinary Urgency with pain in vagina and anus. Short Term Goal (STG) Pt educated in Bowel program, Bowel massage, techniques for having BM without straining. 12/29/23: Reviewed norms of fluid managment, and Bowel massage. STG Duration 4 wks-01/09/24 (12/29/23: MET GOAL) Analytical Engineer Goal (LTG) Improve bladder & bowel management to eliminate straining with BM's & eliminate PF pain with exer 5x /without or with minimal discomfort. LTG Duration 12 wks-03/05/24 One Impairment Pt lacks an independent self care HEP. Short Term Goal (STG) Education in proper methods for transfers, & ADLs with coordination of breathing and core pressure management, and proper vulvar/genital care STG Duration 4 wks-01/09/24 [facility] Goal (LTG) Pt will be independent with a self care HEP of PF stretching and as needed, strengthening exercises, and hip ROM exercises. 12/22/23: HEP: Deep breathing ex. LTG Duration 12 wks-03/05/24 progressed 12/22/23 Assessment Summary Assessment 73 yo fem who returns today after having botox injection 3 days ago in the R Posterior PF (puborectalis) resulting in much reduced tone of R side of PF and only pressure sensed on L side of PF (2-6 of PF clock), palpable mild tenderess in superficial & deep PF muscles on L side of PF with trP treatment, mild cystocele/rectocele remain, substitute muscles still used for PF contractions, tissues dry and opening of vaginal canal now shows some gapping. Poor core pressure management with movement/transfers and body mechanics, unknown effects on constipation. Varicosity to be watched may be present at 6 of PF clock that was extremely sensitive and tender,. but now is reported as increased pressure w/palpation. She has with greater tone on L side vs R side of PF that has many active trigger points that were not released (greater tone expected after R sided botox injection). Pt reviewed her health hx questioinnaire. Deep breathing appears good after training. Physical Therapy Plan Frequency and Duration Frequency of Treatment 1x/Week Duration of treatment (weeks) 12 Plan of Care Start Date 12/15/23 Plan of Care End Date 01/09/24 Next Visit Focus/Plan Next Note Type Treatment Note Next Visit Plan Next: Review new bladder diary & Educate and discussion in bladder & bowel diet, ? Urinary urge technique with handout issued. PF relaxation ex (reverse Kegel) Ex & Education in core pressure mgmt & transfers w/ coordination of breathing, and education in proper vulvar and perineal care with handout issued. POC for Pelvic pain/cytocele & rectocele: Assess bowel involvement with recommendations as appropriate . Core pressure & transfer training education, Hip mobility exs, PF stretching/ STM, HEP. HEP: PF stretching (with ex and wand), awareness training to relax PF, and relaxation techniques, Hip stretch (R ER, L IR/AB) & core strengthening (rotation, TA). Manual therapy for PF stretching (PF clock 6-8).
--- NOTE | 2024-01-08 12:24 | PT.OTN ---
Current Diagnoses Muscle weakness (generalized) (01/08/24) Pelvic and perineal pain (01/08/24) Fecal smearing (01/08/24) Physical Therapy Treatment Note PT-OP-A Visit Information Start: 12/11/23 17:23 Freq: Status: Active Protocol: Document 01/08/24 10:31 LRN (Rec: 01/08/24 12:24 LRN [id number]) Out-Patient Physical Therapy Visit Information Visit Information Visit Type Treatment Note Visit Note wgt 146# 12/19/23-appt with Dr. Quique Perzaa , circus performer. 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 PT-OP-B Current Condition Start: 12/11/23 17:23 Freq: Status: Active Protocol: Document 12/15/23 10:38 LRN (Rec: 12/15/23 12:20 LRN [id number]) Current Condition History of Current Condition Onset Date 2 yrs ago. Current Complaints PF heaviness and pain. History of Current Condition 2 yrs ago felt heaviness in the PF. Was told she had PF issues and saw a PT and got some relief. Has taken a couple of trips and after sitting for long periods of time has heaviness and increased frequecy/urgency and 3 months ago started to have pain (inside vaginal canal and anus); testing for infections was negative. In the morning she doesn't have pain, but it increases as the day goes on. Went to and was told she had a urine spasm and told she could have a BOTOX injection on 12/26/23. Prior Treatments and Tests [facility] [place], [place] - 2 yrs ago. Gabapentin for 3 months. Future Testing and Treatments Planned BOTOX injection on 12/26/23 Treatment Goals Patient/Caregiver Goals Pt goal: initially for HEP. - eliminate PF pain to be able to exer 5x/wk (TM, sometimes UE strengthening) - decreased urgency to decrease pain in vagina and anus. - decreased frequency of urination to be able to do a 12 hr flight in Sept Personal Factors Other Personal Factors That May Effect Small vaginal opening and dry Therapy/Recovery PF tissues, Occasional flare up of Lupus, Rheumatoid arthritis (mostly in hands), tracheostomy 10 yrs ago. PT-OP-C Subjective Start: 12/11/23 17:23 Freq: Status: Active Protocol: Document 01/08/24 10:31 LRN (Rec: 01/08/24 12:24 LRN [id number]) OP-PT Subjective Patient Comments Patient Comments States she no longer has urge to urinate frequently. States she has noticed a correlation with BMs. Has had BM x 2 this morning, type 4 and type 6. BMs every other day. Abdominal and rectal heaviness present before BM and less after BM. Couple days ago she felt uncomfortable, now after sitting 1.5 hrs (to get to PT), feels ok. Pain anal, mayb due to internal hemorrhoids. Suppositories helps her to have BM. PT-OP-I Pelvic Floor Start: 12/11/23 17:23 Freq: Status: Active Protocol: Document 12/15/23 10:38 LRN (Rec: 12/15/23 12:20 LRN [id number]) Pelvic Floor Assessment Urine Urinary Symptoms Urge Sensation,Hesitancy, Falling Out Feeling/Heavy,Pain Other Urinary Symptoms Sitting for long periods of time causes pain. Sometimes strains to urinate Leakage Size Small Leakage Cause Exercise Other Leakage Causes Vigorous activity or exercise. Leaks Per Day 1x/month Voiding Frequency 4 Nocturia 1-2 Pads Used In 24 Hours 1 Urine Pad Type Panty Liner Bowel Bowel Symptoms Constipation,Fecal Leakage, Uncontrolled Flatulence,Pain Bowel Movement Frequency 1/day if mariusz, 1 every 2 days . [place] Stool Chart Comments 1, 4 7 bowel types Pelvic Clock Pelvic Clock 12-3 Tenderness,Tightness Pelvic Clock 3-6 Tenderness,Tightness Pelvic Clock 6-9 Tenderness,Tightness Pelvic Clock 9-12 Tenderness,Tightness Pelvic Clock Other Greatest pain 6-9 of PF clock. Prolapse Cystocele Grade 2 Rectocele Grade 1 Perineal Descent Resting Absent Bearing Present Contraction Ability Voluntary Contraction Weak Voluntary Relaxation Absent Manual Muscle Testing Left 0 Manual Muscle Testing Right 2 Manual Muscle Testing Anterior 0 Manual Muscle Testing Posterior 2 Muscle Endurance (Seconds) 2 Number of Quick Contractions In 10 6 Seconds Comments Pelvic Floor Comments Poor relaxation Quick: Not felt on L side after 2 contractions, felt on R side 6 contractions. PT-OP-J Posture/Palpation/Skin Start: 12/11/23 17:23 Freq: Status: Active Protocol: Document 12/15/23 10:38 LRN (Rec: 12/15/23 12:20 LRN [id number]) Posture Evaluation Position Standing T-Spine Posture Increased Kyphosis L-Spine Posture Increased Lordosis Shoulder Posture (L) Elevated Arm Posture (L) Internally Rotated,(R) Internally Rotated Pelvis Posture Anteriorly Tilted Comments Posture Comments Tight gluteals (butt gripper). PT-OP-K Range of Motion Start: 12/11/23 17:23 Freq: Status: Active Protocol: Document 12/15/23 10:38 LRN (Rec: 12/15/23 12:20 LRN [id number]) Lumbar Spine Range of Motion Lumbar Spine Active Degrees Testing Position Standing Flexion 98 Extension 15 Rotation Left 30 Rotation Right 30 Lateral Flexion Left 15 Lateral Flexion Right 12 ROM Limitations Soft Tissue Tightness Hip Goniometric Range of Motion Hip Right Passive Testing Position Supine Internal Rotation 35 External Rotation 60 Left Passive Testing Position Supine Internal Rotation 30 External Rotation 60 PT-OP-M Strength Start: 12/11/23 17:23 Freq: Status: Active Protocol: Document 12/15/23 10:38 LRN (Rec: 12/15/23 12:20 LRN [id number]) Trunk Strength Trunk Manual Muscle Testing Core Stabilization Normal Hip Strength Hip Manual Muscle Testing Right Internal Rotation 4+ Good+ Comments Generally 5/5 except as indicated above Left Internal Rotation 4+ Good+ Comments Generally 5/5 except as indicated above PT-OP-Q Treatments Start: 12/11/23 17:23 Freq: Status: Active Protocol: Document 01/08/24 10:31 LRN (Rec: 01/08/24 12:24 LRN [id number]) Therapeutic Exercises Supine Exercises SL bridge Supine Exercise Name Done after Ilipsoas stretch Side bilateral Reps/Minutes 10x Comments extra time for positioning. Happy Baby Pose Supine Exercise Name Happy Baby Pose Reps/Minutes 2' Comments Extra time to help pt modify stretch based on pressure vs pain since Botox Piriformis stretch Supine Exercise Name Ankle over knee > KTC. Side bilateral Reps/Minutes 1x each Comments Extra time for review, arm placement. Iliopsoas stretch Supine Exercise Name Stretch f/b SL bridge for active stretch Side bilateral Reps/Minutes 1x each Comments Extra time for training and addition of active stretch after static stretch Sitting Exercises Hip ER/IR stretch Sitting Exercise Name Knee to opp shdr & light push down on knee. Side bilateral Reps/Minutes 1x each Comments Extra time taken to determine max eko stretch position Other Exercises Child's Pose Other Exercise Name Child's Pose - Tolerated partial squat Reps/Minutes 3' Comments Cued to breathe into belly and relax hips Long sit lower back/hip stretch Other Exercise Name Lower trunk rot/Lateral Hip stretch Side bilateral Reps/Minutes 1x each Comments Extra time for use of handout for review Manual Therapy Treatment Soft Tissue Mobilization OI Body Location L OI Mobilization Type Sustained Pressure,Trigger Point Release Intensity/Depth Moderate Body Position Hooklying Comments No pain noted. Self-Care/Home Management Treatment Education Other Education Reviewed pt's bladder diary and discussed use of estrogen creme prescription and purpose, increase in fruits with breakfast and vegs with other meals, and to try prepping warm water for morning and to increase fluids in daytime and lessen the need at nighttime if possible (although pt reporting being a mouth breather). PT-OP-T Assessment and Plan Start: 12/11/23 17:23 Freq: Status: Active Protocol: Document 01/08/24 10:31 LRN (Rec: 01/08/24 12:24 LRN [id number]) Physical Therapy Assessment Goals Three Impairment Increased urinary frequency complaints Short Term Goal (STG) Pt educated in fluid managment norms and urinary voiding and times. 01/08/24: Educated pt in fluid management norms and uirnary voiding and times. Pt senses now that she is fully emptying. She no longer sits and is not able to urinary. STG Duration 4 wks-01/09/24 (01/08/24: MET GOAL) Penitentiary Goal (LTG) Decrease frequency of urination with pt able to feel comfortable with traveling a 12 hr flight in Apr. LTG Duration 12 wks-03/05/24 Two Impairment PF pain as day progresses and pain with exercise. Impairment PF pain with exer 5x/wk (TM ex and sometimes UE strengthening) Urinary Urgency with pain in vagina and anus. Short Term Goal (STG) Pt educated in Bowel program, Bowel massage, techniques for having BM without straining. 12/29/23: Reviewed norms of fluid managment, and Bowel massage. STG Duration 4 wks-01/09/24 (12/29/23: MET GOAL) Accounting Professional Goal (LTG) Improve bladder & bowel management to eliminate straining with BM's & eliminate PF pain with exer 5x /without or with minimal discomfort. LTG Duration 12 wks-03/05/24 One Impairment Pt lacks an independent self care HEP. Short Term Goal (STG) Education in proper methods for transfers, & ADLs with coordination of breathing and core pressure management, and proper vulvar/genital care STG Duration 4 wks-01/09/24 Accounting Professional Goal (LTG) Pt will be independent with a self care HEP of PF stretching and as needed, strengthening exercises, and hip ROM exercises. 12/22/23: HEP: Deep breathing ex. 01/08/24: I/S pt in [place] Pose stretch LTG Duration 12 wks-03/05/24 progressed 01/08/24 Assessment Summary Assessment Pt is a 73 yo female who initially presented with PF tightness/pain (6-9 of PF clock & discomfort 2-6, 9-11), mild cystocele/rectocele, substitute muscles w/Kegel, poor core pressure management (w/movement/transfers and BMs) contributing to pelvic pain. Botox injection has helped with her PF pain. Today, pt is reporting no longer having frequent urge to urinate; therefore urinay delay training not needed. Per her bladder diary she is urinating normally at every 3-4 hours and almost daily BMs, twice this morning, reducing lower abdominal and anal/vaginal pain (anal pain may be due to internal hemorrhoids). Physical Therapy Plan Frequency and Duration Frequency of Treatment 1x/Week Duration of treatment (weeks) 12 Plan of Care Start Date 12/15/23 Plan of Care End Date 01/09/24 Next Visit Focus/Plan Next Note Type Treatment Note Next Visit Plan Next: Start PF relaxation ex (reverse Kegel) ex. Ex & Education in core pressure mgmt & transfers w/ coordination of breathing, and education in proper vulvar and perineal care with handout issued. POC for Pelvic pain/cytocele & rectocele: Assess bowel involvement with recommendations as appropriate . Core pressure & transfer training education, Hip mobility exs, PF stretching/ STM, HEP. HEP: PF stretching (with ex and wand), awareness training to relax PF, and relaxation techniques, Hip stretch (R ER, L IR/AB) & core strengthening (rotation, TA). Manual therapy for PF stretching (PF clock 6-8).
--- NOTE | 2024-01-19 17:54 | PT.OTN ---
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 PT-OP-B Current Condition Start: 12/11/23 17:23 Freq: Status: Active Protocol: Document 12/15/23 10:38 LRN (Rec: 12/15/23 12:20 LRN [id number]) Current Condition History of Current Condition Onset Date 2 yrs ago. Current Complaints PF heaviness and pain. History of Current Condition 2 yrs ago felt heaviness in the PF. Was told she had PF issues and saw a PT and got some relief. Has taken a couple of trips and after sitting for long periods of time has heaviness and increased frequecy/urgency and 3 months ago started to have pain (inside vaginal canal and anus); testing for infections was negative. In the morning she doesn't have pain, but it increases as the day goes on. Went to and was told she had a urine spasm and told she could have a BOTOX injection on 12/26/23. Prior Treatments and Tests [facility] in [place], [place] - 2 yrs ago. Gabapentin for 3 months. Future Testing and Treatments Planned BOTOX injection on 12/26/23 Treatment Goals Patient/Caregiver Goals Pt goal: initially for HEP. - eliminate PF pain to be able to exer 5x/wk (TM, sometimes UE strengthening) - decreased urgency to decrease pain in vagina and anus. - decreased frequency of urination to be able to do a 12 hr flight in Sept Personal Factors Other Personal Factors That May Effect Small vaginal opening and dry Therapy/Recovery PF tissues, Occasional flare up of Lupus, Rheumatoid arthritis (mostly in hands), tracheostomy 10 yrs ago. PT-OP-C Subjective Start: 12/11/23 17:23 Freq: Status: Active Protocol: Document 01/19/24 10:37 LRN (Rec: 01/19/24 11:21 LRN [id number]) OP-PT Subjective Patient Comments Patient Comments States she is having a BM daily. Attempting to lower dosage of Gapapentin. A little over a week ago was having a lot of pelvic pain and pelvic doctor started her on a medication that she is not comfortable with so she is planning on taking the medication if she absolutely has to. She is going to control her pain with Tylenol. States she wants to cut down from 300 to 200 mg of Gabapentin. With BM daily feels less pressure in PF and has been going to gym daily. She is having daily type 4 BM' s currently. Not as much urinary leakage with bowel movements normal. PT-OP-I Pelvic Floor Start: 12/11/23 17:23 Freq: Status: Active Protocol: Document 12/15/23 10:38 LRN (Rec: 12/15/23 12:20 LRN [id number]) Pelvic Floor Assessment Urine Urinary Symptoms Urge Sensation,Hesitancy, Falling Out Feeling/Heavy,Pain Other Urinary Symptoms Sitting for long periods of time causes pain. Sometimes strains to urinate Leakage Size Small Leakage Cause Exercise Other Leakage Causes Vigorous activity or exercise. Leaks Per Day 1x/month Voiding Frequency 4 Nocturia 1-2 Pads Used In 24 Hours 1 Urine Pad Type Panty Liner Bowel Bowel Symptoms Constipation,Fecal Leakage, Uncontrolled Flatulence,Pain Bowel Movement Frequency 1/day if mariusz, 1 every 2 days . Early Stool Chart Comments 1, 4 7 bowel types Pelvic Clock Pelvic Clock 12-3 Tenderness,Tightness Pelvic Clock 3-6 Tenderness,Tightness Pelvic Clock 6-9 Tenderness,Tightness Pelvic Clock 9-12 Tenderness,Tightness Pelvic Clock Other Greatest pain 6-9 of PF clock. Prolapse Cystocele Grade 2 Rectocele Grade 1 Perineal Descent Resting Absent Bearing Present Contraction Ability Voluntary Contraction Weak Voluntary Relaxation Absent Manual Muscle Testing Left 0 Manual Muscle Testing Right 2 Manual Muscle Testing Anterior 0 Manual Muscle Testing Posterior 2 Muscle Endurance (Seconds) 2 Number of Quick Contractions In 10 6 Seconds Comments Pelvic Floor Comments Poor relaxation Quick: Not felt on L side after 2 contractions, felt on R side 6 contractions. PT-OP-J Posture/Palpation/Skin Start: 12/11/23 17:23 Freq: Status: Active Protocol: Document 12/15/23 10:38 LRN (Rec: 12/15/23 12:20 LRN [id number]) Posture Evaluation Position Standing T-Spine Posture Increased Kyphosis L-Spine Posture Increased Lordosis Shoulder Posture (L) Elevated Arm Posture (L) Internally Rotated,(R) Internally Rotated Pelvis Posture Anteriorly Tilted Comments Posture Comments Tight gluteals (butt gripper). PT-OP-K Range of Motion Start: 12/11/23 17:23 Freq: Status: Active Protocol: Document 12/15/23 10:38 LRN (Rec: 12/15/23 12:20 LRN [id number]) Lumbar Spine Range of Motion Lumbar Spine Active Degrees Testing Position Standing Flexion 98 Extension 15 Rotation Left 30 Rotation Right 30 Lateral Flexion Left 15 Lateral Flexion Right 12 ROM Limitations Soft Tissue Tightness Hip Goniometric Range of Motion Hip Right Passive Testing Position Supine Internal Rotation 35 External Rotation 60 Left Passive Testing Position Supine Internal Rotation 30 External Rotation 60 PT-OP-M Strength Start: 12/11/23 17:23 Freq: Status: Active Protocol: Document 12/15/23 10:38 LRN (Rec: 12/15/23 12:20 LRN [id number]) Trunk Strength Trunk Manual Muscle Testing Core Stabilization Normal Hip Strength Hip Manual Muscle Testing Right Internal Rotation 4+ Good+ Comments Generally 5/5 except as indicated above Left Internal Rotation 4+ Good+ Comments Generally 5/5 except as indicated above PT-OP-Q Treatments Start: 12/11/23 17:23 Freq: Status: Active Protocol: Document 01/19/24 10:37 LRN (Rec: 01/19/24 11:21 LRN [id number]) Therapeutic Exercises Supine Exercises Revese Kegel w/breathing Supine Exercise Name Reverse Kegel w/breathing Reps/Minutes 23' Comments phy cue with PT hand on pt's PF, pt cued to feel PF bulge/ relax SL bridge Supine Exercise Name Done after Ilipsoas stretch- reviewed Side left Reps/Minutes 10x Comments extra time for positioning. Iliopsoas stretch Supine Exercise Name Stretch f/b SL bridge for active stretch- review Side left Reps/Minutes 30 Comments Extra time for training and addition of active stretch after static stretch Sitting Exercises Hip ER/IR stretch Sitting Exercise Name Knee to opp shdr & light push down on knee. Side bilateral Reps/Minutes 4' Neuro Re-Education Treatment Coordination Activities Breath w/movement Details Coordinating breath w/movement Reps/Duration 20' Comments Phys, verbal, visual assist needed before pt able to coordinate exhale with exertion and compression of core with mvmt. core pressure mgmt & transfers w/coordination of breathing PT-OP-T Assessment and Plan Start: 12/11/23 17:23 Freq: Status: Active Protocol: Document 01/19/24 10:37 LRN (Rec: 01/19/24 11:21 LRN [id number]) Physical Therapy Assessment Rehab Potential Rehabilitation Potential Good Evaluation Complexity Number of Personal Factors/Comorbidities 3 or More Number of Body Systems Impaired 4 or More Clinical Presentation at Evaluation Evolving Impairments Impairments Activity Tolerance, Coordination,Pain,ROM,Soft Tissue Mobility,Strength, Transfers Goals Three Impairment Increased urinary frequency complaints Short Term Goal (STG) Pt educated in fluid managment norms and urinary voiding and times. 01/08/24: Educated pt in fluid management norms and uirnary voiding and times. Pt senses now that she is fully emptying. She no longer sits and is not able to urinary. STG Duration 4 wks-01/09/24 (01/08/24: MET GOAL) Correction Goal (LTG) Decrease frequency of urination with pt able to feel comfortable with traveling a 12 hr flight in Apr. LTG Duration 12 wks-03/05/24 Two Impairment PF pain as day progresses and pain with exercise. Impairment PF pain with exer 5x/wk (TM ex and sometimes UE strengthening) Urinary Urgency with pain in vagina and anus. Short Term Goal (STG) Pt educated in Bowel program, Bowel massage, techniques for having BM without straining. 12/29/23: Reviewed norms of fluid managment, and Bowel massage. STG Duration 4 wks-01/09/24 (12/29/23: MET GOAL) Knuckle Strap Sewer Goal (LTG) Improve bladder & bowel management to eliminate straining with BM's & eliminate PF pain with exer 5x /without or with minimal discomfort. 01/19/24: Pt reporting having daily BM's type 4. LTG Duration 12 wks-03/05/24 One Impairment Pt lacks an independent self care HEP. Short Term Goal (STG) Education in proper methods for transfers, & ADLs with coordination of breathing and core pressure management, and proper vulvar/genital care 01/19/24: Pt education in transfers & ADLs with coordintation of breathing and core pressure mgmt. STG Duration 4 wks-01/09/24 progressing 01/19/24. Knuckle Strap Sewer Goal (LTG) Pt will be independent with a self care HEP of PF stretching and as needed, strengthening exercises, and hip ROM exercises. 12/22/23: HEP: Deep breathing ex. 01/08/24: I/S pt in Barbra Pose stretch LTG Duration 12 wks-03/05/24 progressed 01/08/24 Assessment Summary Assessment Pt is a 73 yo female who presented with PF tightness/ pain (6-9 of PF clock & discomfort 2-6, 9-11), mild cystocele/rectocele, substitute muscles w/Kegel, poor core pressure management (w/movement/transfers and BMs) contributing to pelvic pain. Botox injection has helped with her PF pain. She has lately been able to have a bowel movement (BM) daily resulting in lessening of her pelvic pain and her wanting to decrease her pain medications . I advised pt to see guidance from whichever physician started her on the medications she is wanting to cut back on. Today she demonstrates good recall of her hip stretches and is starting to learn how to use breating techniques to get PF relaxation, which should help to reduce her pain more as she will not have to valsava maneuver to have a BM. The pt 's plan of care timeframe required updating for; therefore I would recommend continuation of skilled physical therapy to progress towards achieving the above stated goals. Physical Therapy Plan Frequency and Duration Frequency of Treatment 1x/Week Duration of treatment (weeks) 12 Plan of Care Start Date 12/15/23 Plan of Care End Date 03/10/24 Therapeutic Interventions Therapeutic Interventions Coordination Training,Home Exercise Program,Manual Therapy,Neuromuscular Re- education,Self-Care/Home Management,Soft Tissue Mobilization,Therapeutic Activities,Therapeutic Exercises Modalities Biofeedback,Electric Stimulation Next Visit Focus/Plan Next Note Type Treatment Note Next Visit Plan Next: Start gentle PF relaxation ex (reverse Kegel) ex (not cystocele & rectocele) . Ex & Education in education in proper vulvar and perineal care with handout issued and education on BM w/o valsava maneuver. POC for Pelvic pain/cystocele & rectocele: Assess bowel involvement with recommendations as appropriate . Core pressure & transfer training education, Hip mobility exs, PF stretching/ STM, HEP. HEP: PF stretching (with ex and wand), awareness training to relax PF, and relaxation techniques, Hip stretch (R ER, L IR/AB) & core strengthening (rotation, TA). Manual therapy for PF stretching (PF clock 6-8).
--- NOTE | 2024-02-05 12:25 | PT.OTN ---
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 PT-OP-B Current Condition Start: 12/11/23 17:23 Freq: Status: Active Protocol: Document 12/15/23 10:38 LRN (Rec: 12/15/23 12:20 LRN [id number]) Current Condition History of Current Condition Onset Date 2 yrs ago. Current Complaints PF heaviness and pain. History of Current Condition 2 yrs ago felt heaviness in the PF. Was told she had PF issues and saw a PT and got some relief. Has taken a couple of trips and after sitting for long periods of time has heaviness and increased frequecy/urgency and 3 months ago started to have pain (inside vaginal canal and anus); testing for infections was negative. In the morning she doesn't have pain, but it increases as the day goes on. Went to and was told she had a urine spasm and told she could have a BOTOX injection on 12/26/23. Prior Treatments and Tests [facility] in [place], [place] - 2 yrs ago. Gabapentin for 3 months. Future Testing and Treatments Planned BOTOX injection on 12/26/23 Treatment Goals Patient/Caregiver Goals Pt goal: initially for HEP. - eliminate PF pain to be able to exer 5x/wk (TM, sometimes UE strengthening) - decreased urgency to decrease pain in vagina and anus. - decreased frequency of urination to be able to do a 12 hr flight in [facility] Personal Factors Other Personal Factors That May Effect Small vaginal opening and dry Therapy/Recovery PF tissues, Occasional flare up of Lupus, Rheumatoid arthritis (mostly in hands), tracheostomy 10 yrs ago. PT-OP-C Subjective Start: 12/11/23 17:23 Freq: Status: Active Protocol: Document 02/05/24 09:08 LRN (Rec: 02/05/24 09:52 LRN [id number]) OP-PT Subjective Patient Comments Patient Comments Going to gym 5 days/week and Pilates 2x/wk plus ex's at home. Talke to GI specialist post colonoscopy and told him she is regular even with tortuous colon. Using estrogen creme more. PT-OP-I Pelvic Floor Start: 12/11/23 17:23 Freq: Status: Active Protocol: Document 12/15/23 10:38 LRN (Rec: 12/15/23 12:20 LRN [id number]) Pelvic Floor Assessment Urine Urinary Symptoms Urge Sensation,Hesitancy, Falling Out Feeling/Heavy,Pain Other Urinary Symptoms Sitting for long periods of time causes pain. Sometimes strains to urinate Leakage Size Small Leakage Cause Exercise Other Leakage Causes Vigorous activity or exercise. Leaks Per Day 1x/month Voiding Frequency 4 Nocturia 1-2 Pads Used In 24 Hours 1 Urine Pad Type Panty Liner Bowel Bowel Symptoms Constipation,Fecal Leakage, Uncontrolled Flatulence,Pain Bowel Movement Frequency 1/day if mariusz, 1 every 2 days . [place] Stool Chart Comments 1, 4 7 bowel types Pelvic Clock Pelvic Clock 12-3 Tenderness,Tightness Pelvic Clock 3-6 Tenderness,Tightness Pelvic Clock 6-9 Tenderness,Tightness Pelvic Clock 9-12 Tenderness,Tightness Pelvic Clock Other Greatest pain 6-9 of PF clock. Prolapse Cystocele Grade 2 Rectocele Grade 1 Perineal Descent Resting Absent Bearing Present Contraction Ability Voluntary Contraction Weak Voluntary Relaxation Absent Manual Muscle Testing Left 0 Manual Muscle Testing Right 2 Manual Muscle Testing Anterior 0 Manual Muscle Testing Posterior 2 Muscle Endurance (Seconds) 2 Number of Quick Contractions In 10 6 Seconds Comments Pelvic Floor Comments Poor relaxation Quick: Not felt on L side after 2 contractions, felt on R side 6 contractions. PT-OP-J Posture/Palpation/Skin Start: 12/11/23 17:23 Freq: Status: Active Protocol: Document 12/15/23 10:38 LRN (Rec: 12/15/23 12:20 LRN [id number]) Posture Evaluation Position Standing T-Spine Posture Increased Kyphosis L-Spine Posture Increased Lordosis Shoulder Posture (L) Elevated Arm Posture (L) Internally Rotated,(R) Internally Rotated Pelvis Posture Anteriorly Tilted Comments Posture Comments Tight gluteals (butt gripper). PT-OP-K Range of Motion Start: 12/11/23 17:23 Freq: Status: Active Protocol: Document 12/15/23 10:38 LRN (Rec: 12/15/23 12:20 LRN [id number]) Lumbar Spine Range of Motion Lumbar Spine Active Degrees Testing Position Standing Flexion 98 Extension 15 Rotation Left 30 Rotation Right 30 Lateral Flexion Left 15 Lateral Flexion Right 12 ROM Limitations Soft Tissue Tightness Hip Goniometric Range of Motion Hip Right Passive Testing Position Supine Internal Rotation 35 External Rotation 60 Left Passive Testing Position Supine Internal Rotation 30 External Rotation 60 PT-OP-M Strength Start: 12/11/23 17:23 Freq: Status: Active Protocol: Document 12/15/23 10:38 LRN (Rec: 12/15/23 12:20 LRN [id number]) Trunk Strength Trunk Manual Muscle Testing Core Stabilization Normal Hip Strength Hip Manual Muscle Testing Right Internal Rotation 4+ Good+ Comments Generally 5/5 except as indicated above Left Internal Rotation 4+ Good+ Comments Generally 5/5 except as indicated above PT-OP-Q Treatments Start: 12/11/23 17:23 Freq: Status: Active Protocol: Document 02/05/24 09:08 LRN (Rec: 02/05/24 09:52 LRN [id number]) Therapeutic Exercises Supine Exercises Hip ER stretch Supine Exercise Name HEP issued Reps/Minutes 1' SL bridge Supine Exercise Name Done after Ilipsoas stretch- reviewed Side left Reps/Minutes 10x Comments extra time for positioning. Happy Baby Pose Supine Exercise Name Happy Baby Pose Reps/Minutes 2' Piriformis stretch Supine Exercise Name Ankle over knee > KTC. (L>R) Side bilateral Reps/Minutes 2x each Comments Extra time for review, arm placement, & determ max stretch. Iliopsoas stretch Supine Exercise Name Stretch f/b SL bridge for active stretch- review Side left Reps/Minutes 60 SH x 2 Comments Extra time for training and addition of active stretch after static stretch Neuro Re-Education Treatment Coordination Activities Breath w/movement Details Breath w/transfers, picking up objects, reaching. Reps/Duration 8' Comments V cuing given throughout activities taught. Self-Care/Home Management Treatment Education Other Education Reviewed and discussed pt's current bladder diary, recommending pt continue to monitor for improved hydration levels, especially when not eating in PM and may result in not having a BM the following day. Pt educated in norms of times between voiding and discussed if she is not drinking enough her times between voids may be too long. Briefly noted that the pt should not strain w/BM's but to breathe and place knees above hips (further eductaion needed.). Educated and discussed proper vulvar and genital hygiene care. Activities Self-Care/Home Management Activities Handout issued of vulvar and genital hygiene care. PT-OP-T Assessment and Plan Start: 12/11/23 17:23 Freq: Status: Active Protocol: Document 02/05/24 09:08 LRN (Rec: 02/05/24 09:52 LRN [id number]) Physical Therapy Assessment Goals Three Impairment Increased urinary frequency complaints Short Term Goal (STG) Pt educated in fluid managment norms and urinary voiding and times. 01/08/24: Educated pt in fluid management norms and uirnary voiding and times. Pt senses now that she is fully emptying. She no longer sits and is not able to urinary. STG Duration 4 wks-01/09/24 (01/08/24: MET GOAL) Rack Loader Goal (LTG) Decrease frequency of urination with pt able to feel comfortable with traveling a 12 hr flight in Apr. 02/05/24: Pt feels times between voids has lengthened and she feels she would be able to comfortably travel a 12 hr flight. LTG Duration 12 wks-03/05/24 (02/05/24: MET GOAL) Two Impairment PF pain as day progresses and pain with exercise. Impairment PF pain with exer 5x/wk (TM ex and sometimes UE strengthening) Urinary Urgency with pain in vagina and anus. Short Term Goal (STG) Pt educated in Bowel program, Bowel massage, techniques for having BM without straining. 12/29/23: Reviewed norms of fluid managment, and Bowel massage. STG Duration 4 wks-01/09/24 (12/29/23: MET GOAL) Rack Loader Goal (LTG) Improve bladder & bowel management to eliminate straining with BM's & eliminate PF pain with exer 5x /without or with minimal discomfort. 01/19/24: Pt reporting having daily BM's type 4. 02/05/24: Pt having daily BMs w/o PF pain and not straining , does have to bear down at times during the process. LTG Duration 12 wks-03/05/24 (02/05/24: MET GOAL) One Impairment Pt lacks an independent self care HEP. Short Term Goal (STG) Education in proper methods for transfers, & ADLs with coordination of breathing and core pressure management, and proper vulvar/genital care 01/19/24: Pt education in transfers & ADLs with coordintation of breathing and core pressure mgmt. 02/05/24: Pt education and reviewed of proper vulvar/ genital care. STG Duration 4 wks-01/09/24 progressing 02/05/24. Snf Goal (LTG) Pt will be independent with a self care HEP of PF stretching and as needed, strengthening exercises, and hip ROM exercises. 12/22/23: HEP: Deep breathing ex. 01/08/24: I/S pt in Barbra Pose stretch LTG Duration 12 wks-03/05/24 progressed 01/08/24 Assessment Summary Assessment Pt is a 73 yo female who initially presented with PF tightness/pain (6-9 of PF clock & discomfort 2-6, 9-11), mild cystocele/rectocele, substitute muscles w/Kegel, poor core pressure management (w/movement/transfers and BMs) contributing to pelvic pain. Today pt reporting BM's are w /o pain and are regular for first time. Today she appeared to have a good understand after training, how to manage her core pressure with breaths. Per diary review she could benefit from more fluids when not eating, and noted on days (2) she did not have a BM that the day before she did not have fluids in the PM. Times btn voids is sometimes very long, greater than 4 hrs. Physical Therapy Plan Frequency and Duration Frequency of Treatment 1x/Week Duration of treatment (weeks) 12 Plan of Care Start Date 12/15/23 Plan of Care End Date 03/10/24 Next Visit Focus/Plan Next Note Type Treatment Note Next Visit Plan Next: Review core pressure & transfer training education. Add HEP: hip AD stretch Educate/review BM's w/o valsava maneuver w/breath and knees above hips. Check for need of PF stretching (with ex and wand); Manual therapy for PF stretching if needed (PF clock 6-8), Start gentle PF relaxation ex (reverse Kegel) ex (not cystocele & rectocele) . POC for Pelvic pain/cystocele & rectocele: hip mobility exs, PF stretching/STM, HEP: awareness training to relax PF , and relaxation techniques, core strengthening (rotation, TA). DC when on HEP.
--- NOTE | 2024-12-09 13:53 | PT.OPDS ---
Current Diagnoses Muscle weakness (generalized) (02/05/24) Pelvic and perineal pain (02/05/24) Fecal smearing (02/05/24) Visit Care Team Role Provider Type Justo iDamond MD Family Provider Non-Staff Primary Care Provider Specialty: Medical Address: [address], [place], [address] Email: FRANCHESCA Valdes Attending Provider Non-Staff Referring Provider Specialty: Nursing Address: [facility], [address], [place], [address] Email: Visit Number Visit Number 6 Discharge Summary PT-OP-B Current Condition Start: 12/11/23 17:23 Freq: Status: Active Protocol: Document 12/15/23 10:38 LRN (Rec: 12/15/23 12:20 LRN [id number]) Current Condition History of Current Condition Onset Date 2 yrs ago. Current Complaints PF heaviness and pain. History of Current Condition 2 yrs ago felt heaviness in the PF. Was told she had PF issues and saw a PT and got some relief. Has taken a couple of trips and after sitting for long periods of time has heaviness and increased frequecy/urgency and 3 months ago started to have pain (inside vaginal canal and anus); testing for infections was negative. In the morning she doesn't have pain, but it increases as the day goes on. Went to and was told she had a urine spasm and told she could have a BOTOX injection on 12/26/23. Prior Treatments and Tests PT at [facility] in [place], [place] - 2 yrs ago. Gabapentin for 3 months. Future Testing and Treatments Planned BOTOX injection on 12/26/23 Treatment Goals Patient/Caregiver Goals Pt goal: initially for HEP. - eliminate PF pain to be able to exer 5x/wk (TM, sometimes UE strengthening) - decreased urgency to decrease pain in vagina and anus. - decreased frequency of urination to be able to do a 12 hr flight in Sept Personal Factors Other Personal Factors That May Effect Small vaginal opening and dry Therapy/Recovery PF tissues, Occasional flare up of Lupus, Rheumatoid arthritis (mostly in hands), tracheostomy 10 yrs ago. PT-OP-C Subjective Start: 12/11/23 17:23 Freq: Status: Active Protocol: Document 02/05/24 09:08 LRN (Rec: 02/05/24 09:52 LRN [id number]) OP-PT Subjective Patient Comments Patient Comments Going to gym 5 days/week and Pilates 2x/wk plus ex's at home. Talke to GI specialist post colonoscopy and told him she is regular even with tortuous colon. Using estrogen creme more. PT-OP-I Pelvic Floor Start: 12/11/23 17:23 Freq: Status: Active Protocol: Document 12/15/23 10:38 LRN (Rec: 12/15/23 12:20 LRN [id number]) Pelvic Floor Assessment Urine Urinary Symptoms Urge Sensation,Hesitancy, Falling Out Feeling/Heavy,Pain Other Urinary Symptoms Sitting for long periods of time causes pain. Sometimes strains to urinate Leakage Size Small Leakage Cause Exercise Other Leakage Causes Vigorous activity or exercise. Leaks Per Day 1x/month Voiding Frequency 4 Nocturia 1-2 Pads Used In 24 Hours 1 Urine Pad Type Panty Liner Bowel Bowel Symptoms Constipation,Fecal Leakage, Uncontrolled Flatulence,Pain Bowel Movement Frequency 1/day if mariusz, 1 every 2 days . [place] Stool Chart Comments 1, 4 7 bowel types Pelvic Clock Pelvic Clock 12-3 Tenderness,Tightness Pelvic Clock 3-6 Tenderness,Tightness Pelvic Clock 6-9 Tenderness,Tightness Pelvic Clock 9-12 Tenderness,Tightness Pelvic Clock Other Greatest pain 6-9 of PF clock. Prolapse Cystocele Grade 2 Rectocele Grade 1 Perineal Descent Resting Absent Bearing Present Contraction Ability Voluntary Contraction Weak Voluntary Relaxation Absent Manual Muscle Testing Left 0 Manual Muscle Testing Right 2 Manual Muscle Testing Anterior 0 Manual Muscle Testing Posterior 2 Muscle Endurance (Seconds) 2 Number of Quick Contractions In 10 6 Seconds Comments Pelvic Floor Comments Poor relaxation Quick: Not felt on L side after 2 contractions, felt on R side 6 contractions. PT-OP-J Posture/Palpation/Skin Start: 12/11/23 17:23 Freq: Status: Active Protocol: Document 12/15/23 10:38 LRN (Rec: 12/15/23 12:20 LRN [id number]) Posture Evaluation Position Standing T-Spine Posture Increased Kyphosis L-Spine Posture Increased Lordosis Shoulder Posture (L) Elevated Arm Posture (L) Internally Rotated,(R) Internally Rotated Pelvis Posture Anteriorly Tilted Comments Posture Comments Tight gluteals (butt gripper). PT-OP-K Range of Motion Start: 12/11/23 17:23 Freq: Status: Active Protocol: Document 12/15/23 10:38 LRN (Rec: 12/15/23 12:20 LRN [id number]) Lumbar Spine Range of Motion Lumbar Spine Active Degrees Testing Position Standing Flexion 98 Extension 15 Rotation Left 30 Rotation Right 30 Lateral Flexion Left 15 Lateral Flexion Right 12 ROM Limitations Soft Tissue Tightness Hip Goniometric Range of Motion Hip Right Passive Testing Position Supine Internal Rotation 35 External Rotation 60 Left Passive Testing Position Supine Internal Rotation 30 External Rotation 60 PT-OP-M Strength Start: 12/11/23 17:23 Freq: Status: Active Protocol: Document 12/15/23 10:38 LRN (Rec: 12/15/23 12:20 LRN [id number]) Trunk Strength Trunk Manual Muscle Testing Core Stabilization Normal Hip Strength Hip Manual Muscle Testing Right Internal Rotation 4+ Good+ Comments Generally 5/5 except as indicated above Left Internal Rotation 4+ Good+ Comments Generally 5/5 except as indicated above PT-OP-T Assessment and Plan Start: 12/11/23 17:23 Freq: Status: Active Protocol: Document 12/09/24 15:47 LRN (Rec: 12/09/24 15:53 LRN Laptop) Physical Therapy Assessment Goals Three Impairment Increased urinary frequency complaints Short Term Goal (STG) Pt educated in fluid managment norms and urinary voiding and times. 01/08/24: Educated pt in fluid management norms and uirnary voiding and times. Pt senses now that she is fully emptying. She no longer sits and is not able to urinary. STG Duration 4 wks-01/09/24 (01/08/24: MET GOAL) Senior Care Goal (LTG) Decrease frequency of urination with pt able to feel comfortable with traveling a 12 hr flight in Apr. 02/05/24: Pt feels times between voids has lengthened and she feels she would be able to comfortably travel a 12 hr flight. LTG Duration 12 wks-03/05/24 (02/05/24: MET GOAL) Two Impairment PF pain as day progresses and pain with exercise. Impairment PF pain with exer 5x/wk (TM ex and sometimes UE strengthening) Urinary Urgency with pain in vagina and anus. Short Term Goal (STG) Pt educated in Bowel program, Bowel massage, techniques for having BM without straining. 12/29/23: Reviewed norms of fluid managment, and Bowel massage. STG Duration 4 wks-01/09/24 (12/29/23: MET GOAL) Senior Care Goal (LTG) Improve bladder & bowel management to eliminate straining with BM's & eliminate PF pain with exer 5x /without or with minimal discomfort. 01/19/24: Pt reporting having daily BM's type 4. 02/05/24: Pt having daily BMs w/o PF pain and not straining , does have to bear down at times during the process. LTG Duration 12 wks-03/05/24 (02/05/24: MET GOAL) One Impairment Pt lacks an independent self care HEP. Short Term Goal (STG) Education in proper methods for transfers, & ADLs with coordination of breathing and core pressure management, and proper vulvar/genital care 01/19/24: Pt education in transfers & ADLs with coordintation of breathing and core pressure mgmt. 02/05/24: Pt education and reviewed of proper vulvar/ genital care. STG Duration 4 wks-01/09/24 progressing 02/05/24. Senior Care Goal (LTG) Pt will be independent with a self care HEP of PF stretching and as needed, strengthening exercises, and hip ROM exercises. 12/22/23: HEP: Deep breathing ex. 01/08/24: I/S pt in Barbra Pose stretch LTG Duration 12 wks-03/05/24 progressed 01/08/24 Assessment Summary Assessment Pt is a 73 yo female who initially presented with PF tightness/pain (6-9 of PF clock & discomfort 2-6, 9-11), mild cystocele/rectocele, poor core pressure mgmt, and engaging of substitute muscles (gluteals) w/Kegel contributing to pelvic pain. Not all goals were met and pt was unavailable for final assessment. The pt is beyond her plan of care; therefore if further therapy is needed, the pt will need a new referral. Pt was last seen . Pt is being discharged due to no longer attending. Physical Therapy Plan Discharge Physical Therapy Discharge Reasons No Longer Attending PT Discharge Comments Thank you for your referral.
== END 2024-12-14 15:06 | disposition home or self-care (01) ==
LOC: PHYS 09:00
PROVIDERS: Family Provider Family Medicine; PCP Family Medicine; Referring Provider Nurse Practitioner; Visit Provider Nurse Practitioner
DX: R10.2 Pelvic and perineal pain (principal); M62.81 Muscle weakness (generalized); R15.1 Fecal smearing
CPT/HCPCS: 97110; 97112; 97140; 97162; 97530; 97535